=== PATIENT | male | born 1975 | race Hispanic/Latino ===

== ENCOUNTER 2017-06-14 20:19 | Emergency (ER) | payer SELFPAY ==
[2017-06-14] MEDS ORDERED: IBUPROFEN 200 MG TAB ONE (21:48)
[2017-06-14] MEDS ORDERED: IBUPROFEN 400 MG TABLET ONE (21:48)
== END 2017-06-14 22:36 | disposition home or self-care (01) ==
LOC: EDH 20:19
DX: S60.212A Contusion of left wrist, initial encounter (principal); S60.222A Contusion of left hand, initial encounter; Z72.0 Tobacco use; W18.39XA Other fall on same level, initial encounter; Y93.89 Activity, other specified; Y92.89 Other specified places as the place of occurrence of the external cause; Y99.8 Other external cause status
CPT/HCPCS: 73110; 73130

== ENCOUNTER 2018-11-19 14:06 | Inpatient (IN) | payer SELFPAY ==
[~2018-11-19] VITALS: Ht 157.5 cm; Wt 81.6 kg
[2018-11-19] MEDS ORDERED: ACETAMINOPHEN 325 MG TAB ONE (14:32)
[2018-11-19] MEDS ORDERED: SODIUM CHLORIDE 0.9% 1000ML 2,000 ML IV ONE (14:38)
[2018-11-19 14:42] LABS: BASOPHILS % (AUTO) 0.1 % (0.0-5.0); EOSINOPHILS % (AUTO) 0.3 % (0.0-8.0); HEMATOCRIT 37.8 % (42-54); MEAN CORPUSCULAR HEMOGLOBIN 31.2 pg (27.0-33.0); MEAN CORPUSCULAR HGB CONC 34.3 g/dL (32.0-36.0); MEAN CORPUSCULAR VOLUME 90.9 fL (79-99); MONOCYTES % (AUTO) 1.2 % (3.0-13.0); NEUTROPHILS % (AUTO) 94.4 % (40.0-77.0); PLATELET COUNT (AUTO) 207 K/uL (130-400); RED BLOOD CELL COUNT(AUTO) 4.16 MIL/uL (4.50-6.20); RED CELL DISTRIBUTION WIDTH 13.5 % (11.0-15.5); WHITE BLOOD COUNT (AUTO) 12.6 K/uL (4.8-10.8)
[2018-11-19 14:52] LABS: INR 1.08 (0.85-1.15); PARTIAL THROMBOPLASTIN TIME 26.6 SEC (26.3-35.5); PROTHROMBIN TIME 11.3 SEC (9.6-11.6)
[2018-11-19 14:55] LABS: CARBON DIOXIDE 22 mmol/L (21-32); CHLORIDE 100 mmol/L (101-111); CREATININE 1.6 mg/dL (0.5-1.5); GLOMERULAR FILTR. RATE CALC 50 mL/min (>60); GLUCOSE,RANDOM 128 mg/dL (70-105); POTASSIUM 3.4 mmol/L (3.5-5.1); SODIUM SERUM 134 mmol/L (136-145); UREA NITROGEN, BLOOD 15 mg/dL (7-18)
[2018-11-19] MEDS ORDERED: CEFTRIAXONE SODIUM 1 GM ONE (15:04)
[2018-11-19] MEDS ORDERED: SODIUM CHLORIDE 0.9% 50 ML IV ONE (15:04)
[2018-11-19 15:06] LABS: ALANINE AMINOTRANSFERASE 24 U/L (12-78); ALBUMIN 3.6 g/dL (3.5-5.0); ASPARTATE AMINOTRANSFERASE 28 U/L (10-37); CREATINE KINASE, TOTAL 79 U/L (21-232); MYOGLOBIN 70 ng/mL (10-92); TOTAL PROTEIN, SERUM 7.3 g/dL (6.0-8.3); TROPONIN I < 0.04 ng/mL (0.00-0.06)
[2018-11-19] MEDS ORDERED: SODIUM CHLORIDE 0.9% 500ML 500 ML IV ONE (16:38)
[2018-11-19 17:14] LABS: APPEARANCE,URINE Clear (CLEAR); BILIRUBIN,URINE Negative (NEGATIVE); COLOR,URINE Yellow (YELLOW); GLUCOSE, URINE (UA) Negative (NEGATIVE); KETONES,URINE Negative (NEGATIVE); LEUKOCYTE ESTERASE ,URINE Trace (NEGATIVE); NITRATE,URINE Negative (NEGATIVE); OCCULT BLOOD,URINE Negative (NEGATIVE); PH,URINE 6.5 (5.0-8.0); PROTEIN,URINE Trace mg/dL (NEGATIVE)
[2018-11-19 17:35] LABS: BACTERIA,URINE Few /HPF (None Seen); RBC,URINE None Seen /HPF (0-1); SQUAMOUS EPITHELIAL CELL,UR 0-2 /HPF (0-2); WBC,URINE 0-1 /HPF (0-1)
[2018-11-19] MEDS ORDERED: POTASSIUM BICARB/CIT AC 25 MEQ TABLET.EFF ONE (17:39)
[2018-11-19] MEDS ORDERED: ACETAMINOPHEN 325 MG TAB PO PRN ×2 (18:30)
[2018-11-19] MEDS ORDERED: POTASSIUM CHLORIDE 10MEQ/100ML 100 ML IV PRN (18:30)
[2018-11-19] MEDS ORDERED: POTASSIUM CHLORIDE 10% ELIXIR 20 MEQ/15 ML UDCUP PO PRN (18:30)
[2018-11-19] MEDS ORDERED: LACTULOSE 20 GM/30 ML UDCUP PO PRN (18:30)
[2018-11-19] MEDS ORDERED: ONDANSETRON HCL 4 MG/2 ML VIAL IV PRN (18:30)
[2018-11-19] MEDS: CEFTRIAXONE SODIUM 1 GM IV SCH (18:30)
[2018-11-19] MEDS ORDERED: LIDOCAINE HCL-MPF 1% 2ML VIAL IV PRN (18:30)
[2018-11-19] MEDS: FAMOTIDINE 20MG TAB 20 MG TAB PO SCH (21:00)
[2018-11-19] MEDS ORDERED: SODIUM CHLORIDE 0.9% 1000ML 1,000 ML IV ONE (21:51)
[2018-11-20 04:54] LABS: POTASSIUM 3.7 mmol/L (3.5-5.1)
[2018-11-20 05:03] LABS: BASOPHILS % (AUTO) 0.6 % (0.0-5.0); EOSINOPHILS % (AUTO) 0.6 % (0.0-8.0); HEMATOCRIT 29.8 % (42-54); LYMPHOCYTES % (AUTO) 8.7 % (21.0-51.0); MEAN CORPUSCULAR HGB CONC 36.6 g/dL (32.0-36.0); MEAN CORPUSCULAR VOLUME 90.2 fL (79-99); MONOCYTES % (AUTO) 6.2 % (3.0-13.0); NEUTROPHILS % (AUTO) 83.9 % (40.0-77.0); NUCLEATED RED BLOOD CELLS 0.1 % (0.0-0.19); PLATELET COUNT (AUTO) 255 K/uL (130-400); RED BLOOD CELL COUNT(AUTO) 3.31 MIL/uL (4.50-6.20); RED CELL DISTRIBUTION WIDTH 13.8 % (11.0-15.5); WHITE BLOOD COUNT (AUTO) 11.6 K/uL (4.8-10.8)
[2018-11-20] MEDS: IPRATROPIUM/ALBUTEROL SULFATE 3 ML SOLUTION IH PRN (07:55)
[2018-11-20 08:00] VITALS: BP 128/83
[2018-11-20] MEDS: FAMOTIDINE 20MG TAB 20 MG TAB PO SCH ×2 (08:35→21:40)
[2018-11-20 11:00] VITALS: BP 106/54
[2018-11-20 16:00] VITALS: BP 130/74
[2018-11-20] MEDS: CEFTRIAXONE SODIUM 1 GM IV SCH (18:32)
[2018-11-20] MEDS: SODIUM CHLORIDE 0.9% 1000ML 1,000 ML IV SCH ×2 (18:37→21:41)
[2018-11-20 19:08] VITALS: BP 137/81
[2018-11-20 23:18] VITALS: BP 124/71
[2018-11-21 03:30] VITALS: BP 124/73
[2018-11-21 05:54] LABS: EOSINOPHILS % (AUTO) 6.1 % (0.0-8.0); HEMATOCRIT 32.2 % (42-54); LYMPHOCYTES % (AUTO) 26.2 % (21.0-51.0); MEAN CORPUSCULAR HEMOGLOBIN 31.4 pg (27.0-33.0); MEAN CORPUSCULAR HGB CONC 34.3 g/dL (32.0-36.0); MEAN CORPUSCULAR VOLUME 91.5 fL (79-99); MONOCYTES % (AUTO) 12.1 % (3.0-13.0); NEUTROPHILS % (AUTO) 54.6 % (40.0-77.0); NUCLEATED RED BLOOD CELLS 0.1 % (0.0-0.19); PLATELET COUNT (AUTO) 181 K/uL (130-400); RED BLOOD CELL COUNT(AUTO) 3.52 MIL/uL (4.50-6.20); RED CELL DISTRIBUTION WIDTH 13.7 % (11.0-15.5); WHITE BLOOD COUNT (AUTO) 5.3 K/uL (4.8-10.8)
[2018-11-21 06:16] LABS: ALBUMIN 2.7 g/dL (3.5-5.0); BILIRUBIN,TOTAL 0.2 mg/dL (0.2-1.0); CREATININE 0.9 mg/dL (0.5-1.5); POTASSIUM 3.3 mmol/L (3.5-5.1); TOTAL PROTEIN, SERUM 6.1 g/dL (6.0-8.3)
[2018-11-21] MEDS: POTASSIUM CHLORIDE 20 MEQ ERTAB PO PRN ×2 (06:58→10:34)
[2018-11-21] MEDS: SODIUM CHLORIDE 0.9% 1000ML 1,000 ML IV SCH ×2 (07:01→10:23)
[2018-11-21 07:52] VITALS: BP 123/80
[2018-11-21] MEDS: IPRATROPIUM/ALBUTEROL SULFATE 3 ML SOLUTION IH PRN (08:55)
[2018-11-21] MEDS ORDERED: ENOXAPARIN SODIUM 30 MG/0.3 ML SQ SCH (09:00)
[2018-11-21] MEDS: FAMOTIDINE 20MG TAB 20 MG TAB PO SCH (10:34)
[2018-11-21 12:41] VITALS: BP 143/85
[2018-11-21] MEDS ORDERED: CEPH-578 PO (13:19)
--- NOTE | 2018-11-21 15:20 | NUR ---
DC INSTRUCTIONS GIVEN TO PATIENT AND SPOUSE USING TEACH BACK, IV CATHETER REMOVED, NO BLEEDING CATHETER INTACT. PATIENT TAKEN BY FAMILY.
== END 2018-11-21 14:44 | disposition home or self-care (01) | DRG 872 ==
LOC: EDH 14:06 → OBSVTOIN 14:07 → EDHIP 14:07 → 4AH 11-20 07:05
PROVIDERS: ADMIT Family Medicine; ATTEND Family Medicine
DX: A41.9 Sepsis, unspecified organism (principal); E87.1 Hypo-osmolality and hyponatremia; N17.9 Acute kidney failure, unspecified; E87.6 Hypokalemia; Z89.421 Acquired absence of other right toe(s)
CPT/HCPCS: 36415; 71045; 76700; 80048; 80053; 81001; 82550; 83605; 83874; 84484; 85025; 85610; 85730; 86701; 87040; 87088; 87390; 87804; 93005; 94640; 94664; G0378; J0696; J1650; J7030; J7040

== ENCOUNTER 2020-02-21 10:24 | Inpatient (IN) | payer SELFPAY ==
[~2020-02-21] VITALS: Ht 165.1 cm; Wt 88.7 kg
[~2020-02-21 10:24] MED LIST: CEPH-578 PO
[2020-02-21 10:58] LABS: APPEARANCE,URINE Clear (CLEAR); BILIRUBIN,URINE Negative (NEGATIVE); COLOR,URINE Yellow (YELLOW); GLUCOSE, URINE (UA) Negative (NEGATIVE); KETONES,URINE Negative (NEGATIVE); LEUKOCYTE ESTERASE ,URINE Negative (NEGATIVE); NITRATE,URINE Negative (NEGATIVE); OCCULT BLOOD,URINE Small (NEGATIVE); PH,URINE 5.5 (5.0-8.0); PROTEIN,URINE Trace mg/dL (NEGATIVE)
[2020-02-21] MEDS ORDERED: FENTANYL CITRATE PF 50 MCG/1 ML 2ML VIAL ONE (11:05)
[2020-02-21] MEDS ORDERED: ONDANSETRON HCL 4 MG/2 ML VIAL ONE ×2 (11:05→17:10)
[2020-02-21] MEDS ORDERED: SODIUM CHLORIDE 0.9% 1000ML 1,000 ML IV ONE (11:05)
[2020-02-21 11:23] LABS: BASOPHILS % (AUTO) 0.4 % (0.0-5.0); EOSINOPHILS % (AUTO) 0.3 % (0.0-8.0); HEMATOCRIT 43.9 % (42-54); LYMPHOCYTES % (AUTO) 7.1 % (21.0-51.0); MEAN CORPUSCULAR HEMOGLOBIN 30.5 pg (27.0-33.0); MEAN CORPUSCULAR HGB CONC 34.4 g/dL (32.0-36.0); MEAN CORPUSCULAR VOLUME 88.7 fL (79-99); MONOCYTES % (AUTO) 8.2 % (3.0-13.0); NEUTROPHILS % (AUTO) 83.4 % (40.0-77.0); PLATELET COUNT (AUTO) 343 K/uL (130-400); RED BLOOD CELL COUNT(AUTO) 4.95 MIL/uL (4.50-6.20); RED CELL DISTRIBUTION WIDTH 12.3 % (11.0-15.5); WHITE BLOOD COUNT (AUTO) 19.2 K/uL (4.8-10.8)
[2020-02-21 11:33] LABS: CREATININE 0.8 mg/dL (0.5-1.5); POTASSIUM 3.7 mmol/L (3.5-5.1)
[2020-02-21 11:38] LABS: ALBUMIN 3.7 g/dL (3.5-5.0); BILIRUBIN,TOTAL 0.7 mg/dL (0.2-1.0)
[2020-02-21 11:43] LABS: BACTERIA,URINE Few /HPF (None Seen); WBC,URINE None Seen /HPF (0-1)
[2020-02-21 11:44] LABS: SQUAMOUS EPITHELIAL CELL,UR 0-2 /HPF (0-2)
[2020-02-21] MEDS ORDERED: METRONIDAZOLE 500MG/100ML BAG 100 ML ONE (12:27)
[2020-02-21] MEDS ORDERED: LEVOFLOXACIN 750 MG/D5W 150 ML 150 ML ONE (13:39)
[2020-02-21] MEDS ORDERED: CHLORDIAZEPOXIDE HCL 25 MG CAP PO PRN (14:15)
[2020-02-21] MEDS ORDERED: LORAZEPAM 2 MG/ML 1 ML VIAL IVP PRN (14:15)
[2020-02-21] MEDS ORDERED: THIAMINE HCL 100 MG TABLET PO SCH (14:15)
[2020-02-21] MEDS: ZOSYN 3.375GM+NS 50ML 50 ML IV SCH ×2 (14:15→22:25)
[2020-02-21] MEDS ORDERED: FOLIC ACID 5 MG/ML 10 ML VIAL IV SCH (14:15)
[2020-02-21] MEDS ORDERED: PHARMACY COMMUNICATION MISC PRN (14:15)
[2020-02-21] MEDS: LACTATED RINGERS 1000ML 1,000 ML IV SCH (14:15)
[2020-02-21] MEDS ORDERED: MULTIVITAMIN TABLET PO SCH (14:15)
[2020-02-21] MEDS ORDERED: THIAMINE HCL 100 MG TABLET ONE (16:50)
[2020-02-21] MEDS ORDERED: MULTIVITAMIN TABLET ONE (16:50)
[2020-02-21] MEDS ORDERED: ZOSYN 3.375GM+NS 50ML 50 ML IV ONE (16:50)
[2020-02-21] MEDS ORDERED: LACTATED RINGERS 1000ML 1,000 ML IV ONE (16:51)
[2020-02-21] MEDS ORDERED: FOLIC ACID 1 MG TABLET ONE (16:51)
[2020-02-21] MEDS ORDERED: LORAZEPAM 2 MG/ML 1 ML VIAL ONE (17:10)
[2020-02-21 21:35] VITALS: BP 140/67
[2020-02-21] MEDS: MORPHINE SULFATE 4 MG/1ML SYG IV PRN (22:25)
[2020-02-21] MEDS: FAMOTIDINE/PF 20 MG/2 ML VIAL IV SCH (22:25)
[2020-02-21 23:18] VITALS: BP 125/69
[2020-02-22] MEDS ORDERED: ONDANSETRON HCL 4 MG/2 ML VIAL IVP PRN (03:15)
[2020-02-22] MEDS: LACTATED RINGERS 1000ML 1,000 ML IV SCH ×3 (03:35→23:17)
[2020-02-22 04:00] VITALS: BP 140/90
[2020-02-22 05:54] LABS: BASOPHILS % (AUTO) 0.4 % (0.0-5.0); EOSINOPHILS % (AUTO) 0.7 % (0.0-8.0); HEMATOCRIT 44.9 % (42-54); MEAN CORPUSCULAR HEMOGLOBIN 29.9 pg (27.0-33.0); MEAN CORPUSCULAR HGB CONC 33.4 g/dL (32.0-36.0); MEAN CORPUSCULAR VOLUME 89.6 fL (79-99); MONOCYTES % (AUTO) 8.7 % (3.0-13.0); NEUTROPHILS % (AUTO) 74.7 % (40.0-77.0); PLATELET COUNT (AUTO) 359 K/uL (130-400); RED BLOOD CELL COUNT(AUTO) 5.01 MIL/uL (4.50-6.20); RED CELL DISTRIBUTION WIDTH 12.3 % (11.0-15.5); WHITE BLOOD COUNT (AUTO) 18.5 K/uL (4.8-10.8)
[2020-02-22 06:15] LABS: CARBON DIOXIDE 24 mmol/L (21-32); CHLORIDE 101 mmol/L (101-111); CREATININE 0.9 mg/dL (0.5-1.5); GLOMERULAR FILTR. RATE CALC 97 mL/min (>60); GLUCOSE,RANDOM 108 mg/dL (70-105); POTASSIUM 3.7 mmol/L (3.5-5.1); SODIUM SERUM 138 mmol/L (136-145); UREA NITROGEN, BLOOD 12 mg/dL (7-18)
[2020-02-22] MEDS: ZOSYN 3.375GM+NS 50ML 50 ML IV SCH ×3 (06:17→20:42)
[2020-02-22 08:00] VITALS: BP 131/90
[2020-02-22] MEDS: THIAMINE HCL 100 MG TABLET PO SCH (08:16)
[2020-02-22] MEDS: MULTIVITAMIN TABLET PO SCH (08:16)
[2020-02-22] MEDS: FAMOTIDINE/PF 20 MG/2 ML VIAL IV SCH ×2 (08:16→20:42)
[2020-02-22] MEDS: MORPHINE SULFATE 4 MG/1ML SYG IV PRN (08:20)
[2020-02-22] MEDS ORDERED: COMPOUND IV REFRIGERATED 1 EACH IVSOLN MISC PRN (08:45)
[2020-02-22] MEDS: ENOXAPARIN SODIUM 30 MG/0.3 ML SQ SCH (09:00)
[2020-02-22] MEDS: FOLIC ACID 5 MG/ML 10 ML VIAL IV SCH (10:13)
[2020-02-22 12:00] VITALS: BP 149/87
[2020-02-22 16:00] VITALS: BP 141/87
[2020-02-22] MEDS: ACETAMINOPHEN-CODEINE 300/30MG TAB PO PRN (19:27)
[2020-02-22 19:51] VITALS: BP 131/73
[2020-02-22 23:54] VITALS: BP 134/85
[2020-02-23 04:25] VITALS: BP 135/87
[2020-02-23 05:46] LABS: BASOPHILS % (AUTO) 0.5 % (0.0-5.0); EOSINOPHILS % (AUTO) 1.8 % (0.0-8.0); HEMATOCRIT 43.6 % (42-54); LYMPHOCYTES % (AUTO) 19.8 % (21.0-51.0); MEAN CORPUSCULAR HEMOGLOBIN 29.6 pg (27.0-33.0); MEAN CORPUSCULAR HGB CONC 33.3 g/dL (32.0-36.0); MONOCYTES % (AUTO) 7.9 % (3.0-13.0); NEUTROPHILS % (AUTO) 69.2 % (40.0-77.0); PLATELET COUNT (AUTO) 358 K/uL (130-400); RED CELL DISTRIBUTION WIDTH 12.3 % (11.0-15.5); WHITE BLOOD COUNT (AUTO) 10.3 K/uL (4.8-10.8)
[2020-02-23 06:03] LABS: CARBON DIOXIDE 27 mmol/L (21-32); CHLORIDE 102 mmol/L (101-111); CREATININE 0.9 mg/dL (0.5-1.5); GLOMERULAR FILTR. RATE CALC 97 mL/min (>60); GLUCOSE,RANDOM 96 mg/dL (70-105); POTASSIUM 4.2 mmol/L (3.5-5.1); SODIUM SERUM 139 mmol/L (136-145); UREA NITROGEN, BLOOD 10 mg/dL (7-18)
[2020-02-23] MEDS: ZOSYN 3.375GM+NS 50ML 50 ML IV SCH ×2 (06:03→14:46)
[2020-02-23] MEDS: ACETAMINOPHEN-CODEINE 300/30MG TAB PO PRN (06:11)
[2020-02-23 08:00] VITALS: BP 136/83
[2020-02-23] MEDS: THIAMINE HCL 100 MG TABLET PO SCH (08:45)
[2020-02-23] MEDS: FAMOTIDINE/PF 20 MG/2 ML VIAL IV SCH (08:45)
[2020-02-23] MEDS: MULTIVITAMIN TABLET PO SCH (08:45)
[2020-02-23] MEDS: ENOXAPARIN SODIUM 30 MG/0.3 ML SQ SCH (08:47)
[2020-02-23] MEDS: FOLIC ACID 5 MG/ML 10 ML VIAL IV SCH (10:24)
[2020-02-23 11:00] VITALS: BP 147/97
[2020-02-23] MEDS ORDERED: MVIT PO (16:08)
[2020-02-23] MEDS ORDERED: AMOX-426 PO (16:08)
== END 2020-02-23 17:35 | disposition home or self-care (01) | DRG 392 ==
LOC: EDH 10:24 → EDHIP 10:25 → OBSVTOIN 10:25 → 3BH 20:58
PROVIDERS: ADMIT Internal Medicine; ATTEND Internal Medicine
DX: K57.32 Diverticulitis of large intestine without perforation or abscess without bleeding (principal); F17.210 Nicotine dependence, cigarettes, uncomplicated
CPT/HCPCS: 36415; 74176; 80048; 80053; 81001; 82150; 83605; 83690; 83735; 84145; 85025; 93005; G0378; J1650; J1956; J2060; J2270; J2405; J2543; J3010; J3490; J7030; J7120

== ENCOUNTER 2023-02-27 17:54 | Emergency (ER) | payer OTHER ==
[~2023-02-27] VITALS: Ht 165.1 cm; Wt 85.7 kg
[~2023-02-27 17:54] MED LIST changes: +AMOX-426 PO; -CEPH-578 PO; +MVIT PO
[2023-02-27] MEDS ORDERED: IBUP-2070 PO (19:35)
[2023-02-27] MEDS ORDERED: CYCL10TA16 PO (19:35)
[2023-02-27 19:48] VITALS: BP 140/87; PULSE 75; RESP 20; O2SAT 100
[2023-02-27] MEDS ORDERED: CYCLOBENZAPRINE HCL 10 MG TABLET PO ONE (20:00)
[2023-02-27] MEDS ORDERED: KETOROLAC 30MG VIAL (30MG/ML) IM ONE (20:00)
== END 2023-02-27 20:15 | disposition home or self-care (01) ==
LOC: EDH 17:54
DX: S93.492A Sprain of other ligament of left ankle, initial encounter (principal); Z79.899 Other long term (current) drug therapy; Z98.890 Other specified postprocedural states; X50.1XXA Overexertion from prolonged static or awkward postures, initial encounter; Y93.01 Activity, walking, marching and hiking; Y92.89 Other specified places as the place of occurrence of the external cause; Y99.8 Other external cause status
CPT/HCPCS: 99283; 73600; 96372; J1885